=== PATIENT | male | born 1955 | race Caucasian/White ===

== ENCOUNTER 2016-10-30 19:26 | Inpatient (IN) | payer BC ==
[~2016-10-30 19:26] MED LIST changes: -ASPIR LOW81 MG PO; -GLIMEPIRIDE4 MG PO; -METFORMIN ER500 MG PO; -OMEPRAZOLE20 MG PO
[2016-10-30 19:34] VITALS: BP 167/89
[2016-10-30] MEDS ORDERED: ASPIR LOW81 MG PO (19:49)
[2016-10-30] MEDS ORDERED: METFORMIN ER500 MG PO (19:49)
[2016-10-30] MEDS ORDERED: GLIMEPIRIDE4 MG PO (19:49)
[2016-10-30 19:54] VITALS: BP 167/89
[2016-10-30 23:02] VITALS: BP 152/81
[2016-10-31 03:21] VITALS: BP 145/70
[2016-10-31 06:23] VITALS: BP 139/78
[2016-10-31 11:10] VITALS: BP 177/91
[2016-10-31 14:55] VITALS: BP 174/90
[2016-10-31 18:19] VITALS: BP 170/87
[2016-10-31 23:02] VITALS: BP 162/84
[2016-11-01 04:01] VITALS: BP 149/78
[2016-11-01 09:01] VITALS: BP 138/75
[2016-11-01] MEDS ORDERED: OMEPRAZOLE20 MG PO (10:09)
[2016-11-01 10:32] VITALS: BP 130/77
== END 2016-11-01 10:43 | disposition home or self-care (01) | DRG 392 ==
LOC: MED/SURG 19:26
PROVIDERS: ADMIT Nurse Practitioner Family
DX: K29.70 Gastritis, unspecified, without bleeding (principal); E23.0 Hypopituitarism; E11.9 Type 2 diabetes mellitus without complications; E78.5 Hyperlipidemia, unspecified; Z79.84 Long term (current) use of oral hypoglycemic drugs; Z87.891 Personal history of nicotine dependence
CPT/HCPCS: J1815; J2270; J2405; J3411; J7030; J7120; Q9967

== ENCOUNTER → 2016-10-30 | Outpatient (CLI) | payer BC ==
[~2016-10-30] MED LIST: AMARYL PO; AMARYL4 M1 PO; ASPIR LOW81 MG PO; CIALIS20 MG PO; GLIMEPIRIDE4 MG PO; GLUCOPHAGE PO; METFORMIN ER500 MG PO; OMEPRAZOLE20 MG PO
== END ==
LOC: RAD 17:58
DX: R10.13 Epigastric pain (principal)

== ENCOUNTER → 2016-11-25 | Day surgery (SDC) | payer BC ==
[2016-11-01 10:32] VITALS: BP 130/77
[~2016-11-25] MED LIST changes: +ASPIR LOW81 MG PO; +GLIMEPIRIDE4 MG PO; +METFORMIN ER500 MG PO; +OMEPRAZOLE20 MG PO
== END ==
LOC: MSO 11-24 15:28
DX: K25.9 Gastric ulcer, unspecified as acute or chronic, without hemorrhage or perforation (principal); I10 Essential (primary) hypertension; Z12.11 Encounter for screening for malignant neoplasm of colon
CPT/HCPCS: 00810; A4649; J3010; J7030

== ENCOUNTER → 2017-01-13 | Day surgery (SDC) | payer BC | LOC: MSO 13:37 | DX: K25.9 Gastric ulcer, unspecified as acute or chronic, without hemorrhage or perforation (principal); Z87.11 Personal history of peptic ulcer disease; I10 Essential (primary) hypertension; Z79.84 Long term (current) use of oral hypoglycemic drugs | CPT/HCPCS: 00740; J3010; J7042 ==

== ENCOUNTER → 2019-10-27 | Outpatient (CLI) | payer BC ==
[2019-10-27 08:57] LABS: ALBUMIN 3.3 g/dL (3.4-4.8)
[2019-10-27 08:58] LABS: POTASSIUM 4.3 mmol/L (3.5-5.1)
[2019-10-27 08:59] LABS: CALCIUM 9.9 mg/dL (8.3-10.5)
[2019-10-27 09:00] LABS: HEMATOCRIT 38.7 % (42.0-52.0); HEMOGLOBIN 12.7 g/dL (13.5-18.0); MEAN CELL VOLUME 96 fl (78-100); MEAN CORPUSCULAR HEMOGLOBIN 31 pg (27-31); MEAN CORPUSCULAR HGB CONC 33 g/dL (33-37); MEAN PLATELET VOLUME 9.7 fl (7.4-10.4); PLATELET COUNT 162 K/mm3 (130-400); RED BLOOD COUNT 4.04 M/mm3 (4.20-5.60); RED CELL DISTRIBUTION WIDTH 14.9 % (11.5-14.5); TOTAL PROTEIN 6.3 g/dL (6.2-8.1); WHITE BLOOD COUNT 3.7 K/mm3 (4.8-10.8)
[2019-10-27 09:02] LABS: TOTAL BILIRUBIN 1.1 mg/dL (0.2-1.2)
[2019-10-27 11:06] LABS: LYMPHOCYTE 17 % (20-51); MONOCYTE 8 % (3-10); NEUTROPHILS 69 % (42-75)
== END ==
LOC: LAB 08:36
PROVIDERS: Internal Medicine
DX: E11.9 Type 2 diabetes mellitus without complications (principal)

== ENCOUNTER 2019-11-29 11:30 | Emergency (ER) | payer BC ==
[~2019-11-29] VITALS: Wt 64.9 kg
[~2019-11-29 11:30] MED LIST changes: -LANTUS SOLOS100 U/ML SQ
[2019-11-29] MEDS ORDERED: LANTUS SOLOS100 U/ML SQ (11:41)
[2019-11-29 12:05] LABS: LIPASE 76 U/L (8-78)
[2019-11-29 12:16] LABS: TOTAL BILIRUBIN 15.1 mg/dL (0.2-1.2)
[2019-11-29 12:17] LABS: DIRECT BILIRUBIN 11.3 mg/dL (0.0-0.5)
[2019-11-29 13:53] LABS: URINE APPEARANCE CLEAR; URINE BILIRUBIN 3+ (NEGATIVE); URINE BLOOD NEGATIVE (NEGATIVE); URINE COLOR YELLOW; URINE KETONE NEGATIVE (NEGATIVE); URINE NITRATE NEGATIVE (NEGATIVE); URINE PROTEIN(semi-quant) TRACE mg/dL (NEGATIVE)
[2019-11-29 13:54] LABS: URINE LEUKOCYTE ESTERASE NEGATIVE (NEGATIVE); URINE MUCUS PRESENT (NOT PRESENT); URINE UROBILINOGEN 12 mg/dL (NORMAL)
[2019-11-29 15:20] VITALS: BP 157/86
== END 2019-11-29 15:45 | disposition short-term general hospital (02) ==
LOC: ED 11:30
PROVIDERS: Nurse Practitioner Family
DX: K80.00 Calculus of gallbladder with acute cholecystitis without obstruction (principal); E80.6 Other disorders of bilirubin metabolism; K63.89 Other specified diseases of intestine; R94.5 Abnormal results of liver function studies; E11.9 Type 2 diabetes mellitus without complications; E78.5 Hyperlipidemia, unspecified; Z79.4 Long term (current) use of insulin
CPT/HCPCS: J1200; J7030; Q9967

== ENCOUNTER → 2019-11-29 | Outpatient (CLI) | payer BC ==
[~2019-11-29] MED LIST changes: +LANTUS SOLOS100 U/ML SQ
[2019-11-29 09:59] LABS: HEMATOCRIT 34.6 % (42.0-52.0); HEMOGLOBIN 11.6 g/dL (13.5-18.0); MEAN CELL VOLUME 96 fl (78-100); MEAN CORPUSCULAR HEMOGLOBIN 32 pg (27-31); MEAN CORPUSCULAR HGB CONC 34 g/dL (33-37); MEAN PLATELET VOLUME 10.8 fl (7.4-10.4); PLATELET COUNT 147 K/mm3 (130-400); RED BLOOD COUNT 3.59 M/mm3 (4.20-5.60); RED CELL DISTRIBUTION WIDTH 19.3 % (11.5-14.5); WHITE BLOOD COUNT 5.5 K/mm3 (4.8-10.8)
[2019-11-29 10:04] LABS: ALBUMIN 2.6 g/dL (3.4-4.8); POTASSIUM 4.1 mmol/L (3.5-5.1)
[2019-11-29 10:05] LABS: CALCIUM 9.1 mg/dL (8.3-10.5)
[2019-11-29 10:07] LABS: TOTAL PROTEIN 5.9 g/dL (6.2-8.1)
[2019-11-29 10:09] LABS: TOTAL BILIRUBIN 15.1 mg/dL (0.2-1.2)
[2019-11-29 10:23] LABS: LYMPHOCYTE 7 % (20-51); MONOCYTE 19 % (3-10); NEUTROPHILS 73 % (42-75)
[2019-11-29 10:24] LABS: TARGET CELLS 2+
[2019-11-29 11:04] LABS: ERYTHROCYTE SEDIMENTATION RATE 69 mm/hr (0-20)
== END ==
LOC: LAB 09:34
PROVIDERS: Internal Medicine
DX: E23.6 Other disorders of pituitary gland (principal); L29.9 Pruritus, unspecified; R74.0 Nonspecific elevation of levels of transaminase and lactic acid dehydrogenase [LDH]